=== PATIENT | male | born 1945 | race Caucasian/White ===

== ENCOUNTER 2022-08-18 05:55 | Day surgery (SDC) | payer OTHER ==
[~2022-08-18] VITALS: Ht 160 cm; Wt 59.0 kg
[~2022-08-18 05:55] MED LIST: BACLOFEN20 MG PO; CEFADROXIL500 MG PO; FIORICET 50-301 EACH PO; LIPITOR80 MG PO; LOSARTAN-HCTZ1 EACH PO; LOTREL 5-10 MG1 CAP PO; LUMIGAN2.5 M1 OP; NITROGLYCERIN0.4 MG SL; OMEPRAZOLE20 MG PO; PERCOCET 5/3251 TAB PO; ULTRAM50 MG PO; XARELTO20 MG PO; ZYLOPRIM300 MG PO
== END 2022-08-18 15:00 | disposition home or self-care (01) ==
LOC: CIR.AMB 05:55
PROVIDERS: ATTEND Orthopaedic Surgery Hand Surgery
DX: M65.841 Other synovitis and tenosynovitis, right hand (principal); G56.01 Carpal tunnel syndrome, right upper limb; M13.88 Other specified arthritis, other site; I10 Essential (primary) hypertension; E78.5 Hyperlipidemia, unspecified; N28.9 Disorder of kidney and ureter, unspecified; Z85.46 Personal history of malignant neoplasm of prostate; Z08 Encounter for follow-up examination after completed treatment for malignant neoplasm; Z88.1 Allergy status to other antibiotic agents; Z88.5 Allergy status to narcotic agent; Z88.6 Allergy status to analgesic agent